=== PATIENT | female | born 1990 | race Caucasian/White ===

== ENCOUNTER 2016-12-09 02:18 | Inpatient (IN) | payer MEDICAID ==
--- NOTE | ~2016-12-09 | HP ---
Unit #: [id number] #: [id number] Patient: ASHLEY WILD [id number] [place] [address] [id number] MR#: [id number] NAME: ASHLEY WILD. ROOM: P185 Age: 26 Sex: F Admission Date: 12/09/2016 : 1990 Attending Physician: Og Hernández M.D. Admitting Physician: Og Hernández M.D. Primary Care Physician: Joe Greenfield M.D. HISTORY AND PHYSICAL HISTORY OF PRESENT ILLNESS Ashley is a 26-year-old female admitted on 12/09/2016 for detox from multiple substances. She reports using heroin, meth and anything else she can find. PAST MEDICAL HISTORY None. PAST SURGICAL HISTORY None. ALLERGIES None. SOCIAL HISTORY Smokes 1 pack of cigarettes daily. No alcohol use. Does report a history of multiple substance abuse. She is currently and living at a nursing home house. FAMILY HISTORY Noncontributory. REVIEW OF SYSTEMS CONSTITUTIONAL: No fever or chills. HEENT: Denies any sore throat, ear pain or runny nose. CARDIOVASCULAR: Denies chest pain, irregular heart rhythm or palpitations. CHEST: Denies shortness of breath or cough. No hemoptysis. GASTROINTESTINAL: Denies nausea, vomiting, diarrhea or chronic constipation. ENDOCRINE: Denies history of increased thirst or urination. No recent significant weight loss or gain. GENITOURINARY: Denies dysuria, frequency, or hematuria. SKIN: Denies any rashes. HEMATOLOGIC: Denies history of increased bleeding or bruising. MUSCULOSKELETAL: Denies any hot, swollen joints. No generalized muscle pain. NEUROLOGIC: Denies problems with vision or speech. No frequent, severe headaches. No numbness, tingling or weakness in any extremities. Denies loss of bladder or bowel control. CURRENT MEDICATIONS None. Unit #: [id number] #: [id number] Patient: ASHLEY WILD PHYSICAL EXAMINATION GENERAL: Alert, oriented, in no acute distress. VITAL SIGNS: Blood pressure 107/69, heart rate 82, respirations 16. HEIGHT: 5 feet 0. WEIGHT: 180 pounds. SKIN: Warm and dry without rash or lesion. HEENT: Normocephalic. TMs not viewed. Oral and nasal passages clear. Conjunctivae clear. PERRLA. EOMs intact. NECK: Supple without lymphadenopathy or thyromegaly. HEART: Regular rate and rhythm without murmur. LUNGS: Clear. ABDOMEN: Soft, nontender, without masses or hepatosplenomegaly. : Not done. EXTREMITIES: No evidence of cyanosis, clubbing or edema. Moves all without focal deficit. NEUROLOGICAL: Grossly within normal limits. Cranial Nerves: II: Visual gee are intact. III, IV AND : Extraocular movements are intact. Pupils are equal, round and reactive to light. V: Facial sensation is grossly normal. VII: Facial movements and expression are normal. VIII: Auditory acuity grossly intact. IX, X: Uvula is midline. Phonation is normal. XI: Patient shrugs shoulders and turns head normally. XII: Tongue protrudes in the midline. Sensory and Motor Function: Sensory and motor sensation is grossly normal. Motor: moves all extremities well. Coordination: Gait is normal. Deep Tendon Reflexes: Intact. IMPRESSION Psychiatric admission. RECOMMENDATIONS PSYCHIATRIC: Per psychiatrist. MEDICAL: No contraindications to participate in facility's activities. MEDICAL PROGNOSIS Good. MEDICAL CONDITION Stable. Dictated by... Alyssa Chahal/juan TD: 12/09/2016 19:04 JOB #: [id number] Unit #: [id number] #: [id number] Patient: ASHLEY WILD HISTORY AND PHYSICAL Page 1 of 1 X CHIVO BHARDWAJ APRN X HISTORY AND PHYSICAL
--- NOTE | ~2016-12-09 | PN ---
Unit #: [id number] #: [id number] Patient: BERNADINE WILD [id number] [facility] [address] [place] [address] [id number] I MR#: [id number] NAME: BERNADINE WILD. ROOM: P185 Age: 26 Sex: F Admission Date: 12/09/2016 : 1990 Attending Physician: Og Hernández M.D. Admitting Physician: Og Hernández M.D. Primary Care Physician: Jordan Esparza PROGRESS NOTES DATE 12/10/2016 DISCUSSION The patient's detox continues uneventfully. She is in brighter spirits today and should she sustain progress she will likely return to "[facility]" tomorrow. Dictated by... Og Hernández M.D. CB/von TD: 12/11/2016 01:55 JOB #: [id number] [facility] PROGRESS NOTES Page 1 of 1 X Og Hernández MD X PROGRESS NOTE
--- NOTE | ~2016-12-09 | PA ---
Unit #: [id number] #: [id number] Patient: BERNADINE WILD [id number] [facility] [place] [address] [id number] I MR#: [id number] NAME: BERNADINE WILD. ROOM: P185 Age: 26 Sex: F Admission Date: 12/09/2016 : 1990 Date of Assessment: 12/09/2016 Attending Physician: Og Hernández M.D. Admitting Physician: Og Hernández M.D. Primary Care Physician: Joe Greenfield M.D. PSYCHIATRIC ASSESSMENT IDENTIFYING INFORMATION The patient is a 26-year-old single white female admitted to the [address] [place] [address] for opioid detox. INFORMANT(S) Chart, patient cannot be aroused for interview. CHIEF COMPLAINT None given. HISTORY OF PRESENT ILLNESS The patient is a 26-year-old white female admitted with ongoing abuse of intravenous heroin. The patient also reports abuse of meth and cocaine. The patient reports she has not been sleeping well and has lost her appetite. She reports that she relapsed approximately 2 weeks ago and is "tired of living this way." She had been sober for a month prior to that. She currently resides in a prison house. Current stressors include recent loss of job, her boyfriend just from an overdose per report of the chart. The patient is reporting positive suicidal ideation with plan to overdose. PAST PSYCHIATRIC HISTORY Patient has been an inpatient at this facility in the past for opioid withdrawal and has been in rehab on 2 occasions. FAMILY HISTORY Noncontributory. SOCIAL HISTORY The patient's substance abuse history as noted previously. MEDICATION HISTORY The patient is currently on no prescribed medications. ALLERGIES None reported. MENTAL STATUS EXAM At this time reveals the patient to be a soundly sleeping white female. Multiple attempts to arouse the patient are unsuccessful. ASSETS AND LIABILITIES Patient's assets to be assessed. Liabilities, lack of resources. Unit #: [id number] #: [id number] Patient: BERNADINE WILD ADMITTING DIAGNOSES 1. Opioid use disorder. 2. Cocaine use disorder. 3. Methamphetamine use disorder. 4. Dysthymic disorder. PSYCHIATRIC PLAN/TREATMENT GOALS The patient remains hospitalized for safety and stabilization. Routine detoxification protocol for opioids has been initiated. Suicide precautions are likewise in place. Consideration may be given to initiation of pharmacotherapy once the patient is available for more thorough evaluation. ESTIMATED LENGTH OF STAY Five to seven days. Dictated by... Og Hernández M.D. NITZA/juan TD: 12/09/2016 16:26 JOB #: [id number] PSYCHIATRIC ASSESSMENT Page 1 of 1 X Og Hernández MD X PSYCHIATRIC ASSESSMENT
--- NOTE | ~2016-12-09 | DS ---
Unit #: [id number] #: [id number] Patient: BERNADINE WILD [id number] [facility] [address] [place] [address] [id number] MR#: [id number] NAME: BERNADINE WILD. ROOM: P185 Age: 26 Sex: F Admission Date: 12/09/2016 : 1990 Discharge Date: 12/11/2016 Attending Physician: Og Hernández M.D. Primary Care Physician: Joe Greenfield M.D. DISCHARGE SUMMARY REASON FOR ADMISSION The patient is a 26-year-old white female, admitted with a recent relapse of alcohol and opioids and methamphetamine. HOSPITAL COURSE The patient was admitted to the [facility] and placed on routine detoxification protocol for opioids. Her stay in the hospital was a brief and uneventful one. Her detox went smoothly and by 12/11/2016, she requested discharge back to "[facility] Discharge was ordered. FINAL DIAGNOSES Opioid use disorder, methamphetamine use disorder. DISPOSITION ON DISCHARGE The patient is discharged on no psychotropic or other medications. FOLLOWUP Followup will take place through the auspices of "[facility]." PROGNOSIS The patient's prognosis is considered fair. Dictated by... Og Hernández M.D. CB/angel TD: 12/11/2016 23:42 JOB #: [id number] DISCHARGE SUMMARY Page 1 of 1 X Og Hernández MD X DISCHARGE SUMMARY
[2016-12-09 11:51] LABS: BASOPHIL% 0.4 % (0-2.5); EOSINOPHIL# 0.2 X10e3 (0-0.7); EOSINOPHIL% 2.1 % (0.0-7.0); HEMATOCRIT 38.7 % (35.0-45.0); LYMPHOCYTE# 2.2 X10e3 (1.0-3.5); MEAN CELL VOLUME 89.8 FL (83-96); MEAN CORPUSCULAR HEMOGLOBIN 30.1 PG (28-34); MEAN CORPUSCULAR HGB CONC 33.6 g/dL (30-36); MEAN PLATELET VOLUME 7.9 FL (6.5-11.5); MONOCYTE% 11.6 % (3.0-12.0); NEUTROPHIL# 4.9 X10e3 (1.5-7.1); NEUTROPHIL% 58.9 % (40-75); PLATELET COUNT 234 X10e3 (140-420); RED BLOOD COUNT 4.31 X10e (3.90-5.30); RED CELL DISTRIBUTION WIDTH 12.7 % (11.0-15.5); WHITE BLOOD COUNT 8.3 X10e3 (4.0-10.5)
[2016-12-09 12:05] LABS: DIFF IND NO
[2016-12-09 12:12] LABS: ALBUMIN SERUM 3.4 g/dL (3.5-5.0); BILIRUBIN,TOTAL 0.5 mg/dL (0.2-2.0); CALCIUM SERUM 8.4 mg/dL (8.4-10.2); CREATININE SERUM 0.5 mg/dL (0.6-1.4); GLOM FILT RATE Estimated 132.7 mL/min (>60); POTASSIUM 3.9 mmol/L (3.5-5.1); PROTEIN TOTAL SERUM 6.2 g/dL (6.0-8.3)
[2016-12-10 11:37] LABS: URINE APPEARANCE TURBID; URINE BLOOD NEG (NEG); URINE COLOR DK YELLOW; URINE GLUCOSE NEG (NEG); URINE KETONE NEG (NEG); URINE LEUKOCYTE ESTERASE NEG (NEG); URINE NITRATE NEG (NEG); URINE PH 6.5 (5-8); URINE PROTEIN NEG (NEG)
[2016-12-10 11:58] LABS: URINE BILIRUBIN NEG (NEG)
[2016-12-10 12:07] LABS: AMPHETAMINE POS (NEG); BARBITURATES NEG (NEG); BENZODIAZEPINES NEG (NEG); COCAINE NEG (NEG); MARIJUANA NEG (NEG); OPIATES POS (NEG); TRICYCLIC ANTIDEPRESSANTS NEG (NEG); U METHADONE NEG (NEG)
[2016-12-13 07:48] LABS: HA AB IGM (HEPPAN) Nonreactive (Nonreactive); HB CORE AB IGM (HEPPAN) Nonreactive (Nonreactive); HB S AG (HEPPAN) Nonreactive (Nonreactive); HEP C AB (HEPPAN) Nonreactive (Nonreactive); HEP C AB SIGNAL TO CUTOFF 0.06 ratio (<1.00)
== END 2016-12-11 15:00 | disposition home or self-care (01) | DRG 897 ==
LOC: P1E 02:18
PROVIDERS: Psychiatry & Neurology Psychiatry; Specialist
PROC: HZ2ZZZZ Detoxification Services for Substance Abuse Treatment (ICD-10-PCS; principal; 2016-12-09)
DX: F11.20 Opioid dependence, uncomplicated (principal); F14.20 Cocaine dependence, uncomplicated; F15.20 Other stimulant dependence, uncomplicated; F34.1 Dysthymic disorder; F17.200 Nicotine dependence, unspecified, uncomplicated
CPT/HCPCS: 80053; 80074; 80307; 81003; 84439; 84443; 84703; 85025; 86592; 87806

== ENCOUNTER 2017-01-19 19:59 | Inpatient (IN) | payer MEDICAID ==
--- NOTE | ~2017-01-19 | HP ---
Unit #: [id number] #: [id number] Patient: BERNADINE WILD [id number] [place] [address] [id number] I MR#: [id number] NAME: BERNADINE WILD. ROOM: P171 Age: 26 Sex: F Admission Date: 01/19/2017 : 1990 Attending Physician: Og Hernández M.D. Admitting Physician: Og Hernández M.D. Primary Care Physician: Joe Greenfield M.D. HISTORY AND PHYSICAL HISTORY OF PRESENT ILLNESS The patient is a 26-year-old female admitted to [facility] on 01/19/2017 for suicidal ideation and detox from heroin. PAST MEDICAL HISTORY 1. Polysubstance use. 2. Nicotine dependence. PAST SURGICAL HISTORY I and D of an abscess. ALLERGIES No known drug allergies. SOCIAL HISTORY She is unemployed. She lives in a snf house. She smokes 1 pack of cigarettes daily. Uses 1 gram of heroin on a daily basis and methamphetamines and Xanax daily. FAMILY HISTORY Noncontributory. REVIEW OF SYSTEMS CONSTITUTIONAL: No fever or chills. HEENT: Denies any sore throat, ear pain or runny nose. CARDIOVASCULAR: Denies chest pain, irregular heart rhythm or palpitations. CHEST: Denies shortness of breath or cough. No hemoptysis. GASTROINTESTINAL: Denies nausea, vomiting, diarrhea or chronic constipation. ENDOCRINE: Denies history of increased thirst or urination. No recent significant weight loss or gain. GENITOURINARY: Denies dysuria, frequency, or hematuria. SKIN: Denies any rashes. HEMATOLOGIC: Denies history of increased bleeding or bruising. MUSCULOSKELETAL: Denies any hot, swollen joints. No generalized muscle pain. NEUROLOGIC: Denies problems with vision or speech. No frequent, severe headaches. No numbness, tingling or weakness in any extremities. Denies loss of bladder or bowel control. CURRENT MEDICATIONS The patient is not on any home medications. Unit #: [id number] #: [id number] Patient: BERNADINE WILD PHYSICAL EXAMINATION GENERAL: She is awake, alert, oriented, in no acute distress. VITAL SIGNS: Temperature 98.1, heart rate 62, respirations 16, blood pressure 93/66. HEIGHT: 5 feet 0. WEIGHT: 170 pounds. SKIN: Warm and dry without rash or lesion. HEENT: Normocephalic. TMs not viewed. Oral and nasal passages clear. Conjunctivae clear. PERRLA. EOMs intact. NECK: Supple without lymphadenopathy or thyromegaly. HEART: Regular rate and rhythm without murmur. LUNGS: Clear. ABDOMEN: Soft, nontender. : Not done. EXTREMITIES: No evidence of cyanosis, clubbing or edema. Moves all without focal deficit. NEUROLOGICAL: Grossly within normal limits. Cranial Nerves: II: Visual gee are intact. III, IV AND : Extraocular movements are intact. Pupils are equal, round and reactive to light. V: Facial sensation is grossly normal. VII: Facial movements and expression are normal. VIII: Auditory acuity grossly intact. IX, X: Uvula is midline. Phonation is normal. XI: Patient shrugs shoulders and turns head normally. XII: Tongue protrudes in the midline. Sensory and Motor Function: Sensory and motor sensation is grossly normal. Motor: moves all extremities well. Coordination: Gait is normal. Deep Tendon Reflexes: Intact. IMPRESSION 1. Psychiatric admission. 2. Polysubstance abuse. 3. Nicotine dependence. RECOMMENDATIONS PSYCHIATRIC: Per psychiatrist. MEDICAL: No contraindication to participating in facility activities. MEDICAL PROGNOSIS Good. MEDICAL CONDITION Stable. Dictated by... Alyssa Cooley/juan TD: 01/20/2017 22:38 JOB #: [id number] Unit #: [id number] #: [id number] Patient: BENRADINE WILD HISTORY AND PHYSICAL Page 1 of 1 X EMILIA SCHREIBER APRN HISTORY AND PHYSICAL
--- NOTE | ~2017-01-19 | DS ---
Unit #: [id number] #: [id number] Patient: BERNADINE WILD [id number] [facility] [address] [place] [address] [id number] MR#: [id number] NAME: BERNADINE WILD. ROOM: P171 Age: 26 Sex: F Admission Date: 01/19/2017 : 1990 Discharge Date: 01/24/2017 Attending Physician: Og Hernández M.D. Primary Care Physician: Joe Greenfield M.D. DISCHARGE SUMMARY REASON FOR ADMISSION The patient is a 26-year-old single white female admitted to the [address] [place] [address] with recurrent depression and opioid dependence. HOSPITAL COURSE The patient was eventually admitted to the care of Dr. Edwards and was started on Celexa 20 mg daily to address depressive symptoms. She tolerated the medication and will actively participate within the therapeutic milieu though her detox was a fairly arduous one. By 01/24/2017, the patient was in bright spirits and requested discharge. She was agreeable with plan to follow up in the intensive outpatient program, and it was so ordered. FINAL DIAGNOSES 1. Dysthymic disorder. 2. Opioid use disorder. DISPOSITION ON DISCHARGE The patient was discharged on the following medications: 1. Celexa 20 mg daily for depression. DIET AND ACTIVITY No dietary or physical restrictions were placed on the patient at the time of discharge. FOLLOWUP Followup will take place through the auspices of the chemical dependence intensive outpatient program and community mental health resources. PROGNOSIS Considered fair. Dictated by... Og Hernández M.D. CB/deisi TD: 01/25/2017 14:06 JOB #: [id number] Unit #: [id number] #: [id number] Patient: BERNADINE WILD DISCHARGE SUMMARY Page 1 of 1 X Og Hernández MD X DISCHARGE SUMMARY
--- NOTE | ~2017-01-19 | PN ---
Unit #: [id number] #: [id number] Patient: BERNADINE WILD [id number] [facility] [address] [place] [address] [id number] I MR#: [id number] NAME: BERNADINE WILD. ROOM: P171 Age: 26 Sex: F Admission Date: 01/19/2017 : 1990 Attending Physician: Og Hernández M.D. Admitting Physician: Og Hernández M.D. Primary Care Physician: Jordan Esparza PROGRESS NOTES DATE 01/22/2017 DISCUSSION The patient is seen today as this physician returns from vacation. She reports that her symptoms of opioid withdrawal have largely subsided and that she may be ready for discharge as early as tomorrow. She expresses interest in return to the chemical dependence intensive outpatient program. Dictated by... Og Hernández M.D. CB/von TD: 01/23/2017 00:23 JOB #: [id number] [facility] PROGRESS NOTES Page 1 of 1 X Og Hernández MD X PROGRESS NOTE
--- NOTE | ~2017-01-19 | PA ---
Unit #: [id number] #: [id number] Patient: ASHLEY WILD [id number] [facility] [address] [place] [address] [id number] MR#: [id number] NAME: ASHLEY WILD. ROOM: P171 Age: 26 Sex: F Admission Date: 01/19/2017 : 1990 Date of Assessment: Attending Physician: Og Hernández M.D. Admitting Physician: Og Hernández M.D. Primary Care Physician: Joe Greenfield M.D. PSYCHIATRIC ASSESSMENT DATE OF SERVICE 01/20/2017. INFORMANTS The patient, reliable; OLOP, reliable. CHIEF COMPLAINT Suicidal ideation. HISTORY OF PRESENT ILLNESS Ashley Wild is a 26-year-old woman with a history of depression and polysubstance dependence. She says she has been recently increasingly depressed, hopeless, helpless, and has been overdosing and been using heroin up to 1 g IV daily and has a plan to overdose on heroin. She was unable to contract for safety and was admitted for stabilization. PAST PSYCHIATRIC HISTORY Last admission was in November of this year with Dr. Hernández. She has been in rehab on 2 occasions otherwise. FAMILY PSYCHIATRIC HISTORY Noncontributory. SOCIAL HISTORY The patient has been erratically staying in usp houses and has minimal psychosocial support. Further social history will be obtained from the social welfare research worker. PAST MEDICAL HISTORY No chronic medical problems. MEDICATIONS None currently. ALLERGIES No known medication allergies. SUBSTANCE USE HISTORY As noted above. MENTAL STATUS EXAMINATION The patient presented as a mildly disheveled woman who appeared her stated age. She was cooperative with the examination. Her speech was Unit #: [id number] #: [id number] Patient: ASHLEY WILD spontaneous and easily understood. Musculoskeletal examination was calm. Her mood was depressed with a flat affect. She was alert and fully oriented. Memory and concentration were intact. Thought processes were logical with no psychosis. She reported suicidal ideation with a plan to overdose on heroin. Insight and judgment, fair. Fund of knowledge and abstraction, fair. ASSETS AND LIABILITIES The patient knows local resources and is voluntarily for treatment. Liabilities include recent relapse and no current treatment. ADMITTING DIAGNOSES AXIS I: Major depression, opioid dependence. AXIS II: No diagnosis. AXIS III: Opioid withdrawal. AXIS IV: AXIS V: PSYCHIATRIC PLAN The patient was admitted and placed on suicide precautions and the opioid detox protocol. Celexa 20 mg daily for depression will be started and a physical examination and laboratory studies conducted and reviewed. Treatment goals are resolution of SI, establishment of sobriety, improvement in insight, and improvement in coping skills. DISCHARGE PLANNING Follow up with chemical dependence treatment of the patient's choice. ESTIMATED LENGTH OF STAY 5 days. Dictated by... Fabricio Edwards M.D. SHIRA/angel TD: 01/20/2017 16:22 JOB #: [id number] PSYCHIATRIC ASSESSMENT Page 1 of 1 X Fabricio Edwards MD X PSYCHIATRIC ASSESSMENT
--- NOTE | ~2017-01-19 | PN ---
Unit #: [id number] #: [id number] Patient: BERNADINE WILD [id number] [facility] [address] [place] [address] [id number] I MR#: [id number] NAME: BERNADINE WILD. ROOM: P171 Age: 26 Sex: F Admission Date: 01/19/2017 : 1990 Attending Physician: Og Hernández M.D. Admitting Physician: Og Hernández M.D. Primary Care Physician: Jordan Esparza PROGRESS NOTES DATE 01/23/2017 DISCUSSION The patient appears to be in significantly less physical distress when seen today and is a bit brighter. Should she sustain progress, discharge will likely take place tomorrow, and the patient is expressing interest in reinitiation of treatment in the chemical dependence intensive outpatient program. Dictated by... Og Hernández M.D. CB/bzg TD: 01/23/2017 14:47 JOB #: [id number] [facility] PROGRESS NOTES Page 1 of 1 X Og Hernández MD PROGRESS NOTE
[2017-01-20 11:01] LABS: BASOPHIL% 0.8 % (0-2.5); EOSINOPHIL# 0.1 X10e3 (0-0.7); EOSINOPHIL% 3.5 % (0.0-7.0); HEMATOCRIT 42.4 % (35.0-45.0); HEMOGLOBIN 14.1 gm/dL (12.0-16.0); LYMPHOCYTE# 1.2 X10e3 (1.0-3.5); MEAN CELL VOLUME 90.3 FL (83-96); MEAN CORPUSCULAR HGB CONC 33.2 g/dL (30-36); MEAN PLATELET VOLUME 8.8 FL (6.5-11.5); MONOCYTE# 0.7 X10e3 (0-1.0); MONOCYTE% 17.7 % (3.0-12.0); NEUTROPHIL# 1.9 X10e3 (1.5-7.1); PLATELET COUNT 183 X10e3 (140-420)
[2017-01-20 11:02] LABS: DIFF IND NO
[2017-01-20 11:26] LABS: URINE APPEARANCE CLEAR; URINE BILIRUBIN NEG (NEG); URINE BLOOD NEG (NEG); URINE COLOR DK YELLOW; URINE GLUCOSE NEG (NEG); URINE KETONE NEG (NEG); URINE LEUKOCYTE ESTERASE NEG (NEG); URINE NITRATE NEG (NEG); URINE PH 5.5 (5-8); URINE PROTEIN NEG (NEG); URINE SPECIFIC GRAVITY 1.019 (1.003-1.035)
[2017-01-20 11:35] LABS: CULTURE INDICATED? NO
[2017-01-20 12:04] LABS: ALBUMIN SERUM 3.4 g/dL (3.5-5.0); BILIRUBIN,TOTAL 1.1 mg/dL (0.2-2.0); BUN/CREATININE RATIO 16.66; CALCIUM SERUM 8.5 mg/dL (8.4-10.2); CREATININE SERUM 0.6 mg/dL (0.6-1.4); GLOM FILT RATE Estimated 124.9 mL/min (>60); POTASSIUM 3.7 mmol/L (3.5-5.1); PROTEIN TOTAL SERUM 6.1 g/dL (6.0-8.3)
[2017-01-20 12:21] LABS: AMPHETAMINE POS (NEG); BARBITURATES NEG (NEG); BENZODIAZEPINES NEG (NEG); COCAINE NEG (NEG); MARIJUANA NEG (NEG); OPIATES POS (NEG); TRICYCLIC ANTIDEPRESSANTS NEG (NEG); U METHADONE NEG (NEG)
== END 2017-01-24 14:03 | disposition home or self-care (01) | DRG 881 ==
LOC: P1E 23:46
PROVIDERS: Psychiatry & Neurology Psychiatry
PROC: HZ2ZZZZ Detoxification Services for Substance Abuse Treatment (ICD-10-PCS; principal; 2017-01-19)
DX: F32.9 Major depressive disorder, single episode, unspecified (principal); R45.851 Suicidal ideations; F11.23 Opioid dependence with withdrawal; F19.20 Other psychoactive substance dependence, uncomplicated; F17.210 Nicotine dependence, cigarettes, uncomplicated; Z56.0 Unemployment, unspecified
CPT/HCPCS: 80053; 80307; 81003; 84703; 85025; 86592